=== PATIENT | female | born 1950 | race Caucasian/White ===

== ENCOUNTER 2021-06-23 10:13 | Emergency (ER) | payer OTHER ==
[2021-06-23 11:13] VITALS: BP 140/84; PULSE 92; TEMP 97; BMI 32.1
[2021-06-23] MEDS ORDERED: LIDOCAINE 5% TOPICAL PATCH TP ONE (12:07)
[2021-06-23] MEDS ORDERED: LIDOCAINE 5% TOPICAL PATCH ONE (12:11)
[2021-06-23] MEDS ORDERED: predniSONE 20 MG TABLET (UD) ONE (12:12)
[2021-06-23] MEDS ORDERED: predniSONE 10 MG TABLET (UD) ONE (12:12)
[2021-06-23] MEDS ORDERED: predniSONE 20 MG TABLET (UD) PO SCH (12:15)
[2021-06-23] MEDS ORDERED: LIDOCAINE PATCH REMOVAL MC SCH (22:00)
== END 2021-06-23 15:01 | disposition home or self-care (01) ==
LOC: JER 10:13
DX: M54.31 Sciatica, right side (principal)
CPT/HCPCS: 99283-25

== ENCOUNTER → 2021-07-03 | Day surgery (SDC) | payer OTHER ==
[~2021-07-03] MED LIST: BUPIVACAINE HCL/PF 0.25% (2.5MG/ML) 10 ML VIAL ONE; EPINEPHrine 1:1,000 1 MG/1 ML - 30ML VIAL (INJECTION) ONE
[2021-07-03 07:10] VITALS: BP 119/73; PULSE 84; TEMP 98.4; BMI 30.9
== END | disposition home or self-care (01) ==
LOC: FASU 05:56
PROVIDERS: ATTEND Orthopaedic Surgery Sports Medicine
PROC: 0SBC4ZZ Excision of Right Knee Joint, Percutaneous Endoscopic Approach (ICD-10-PCS; principal; 2021-07-03)
DX: Z53.8 Procedure and treatment not carried out for other reasons (principal); S83.241A Other tear of medial meniscus, current injury, right knee, initial encounter; X58.XXXA Exposure to other specified factors, initial encounter; Y93.9 Activity, unspecified; Y92.9 Unspecified place or not applicable

== ENCOUNTER 2021-07-04 06:29 | Day surgery (SDC) | payer OTHER ==
[2021-07-04 07:43] VITALS: BMI 30.9
[2021-07-04] MEDS ORDERED: BUPIVACAINE HCL/PF 0.25% (2.5MG/ML) 10 ML VIAL ONE (08:53)
[2021-07-04] MEDS ORDERED: SUCCINYLCHOLINE CHLORIDE 200 MG/10 ML SYRINGE ONE (09:53)
[2021-07-04] MEDS ORDERED: LIDOCAINE HCL 2% JELLY (5 ML/TUBE) ONE (09:53)
[2021-07-04] MEDS ORDERED: PROPOFOL 20 ML ONE ×2 (09:53)
[2021-07-04] MEDS ORDERED: LIDOCAINE HCL 2% 100 MG/5 ML DISP.SYRIN ONE (09:53)
[2021-07-04] MEDS ORDERED: MIDAZOLAM HCL 2 MG/2 ML SINGLE DOSE VIAL ONE (09:54)
[2021-07-04] MEDS ORDERED: HYDROmorphone HCL/PF 1 MG/ML VIAL ONE (10:40)
[2021-07-04] MEDS ORDERED: BUPIVACAINE HCL/PF 0.25% (2.5MG/ML) 10 ML VIAL IJ ONE (10:45)
[2021-07-04] MEDS: HYDROmorphone HCL/PF 1 MG/ML VIAL ONE ×2 (10:59→11:30)
[2021-07-04] MEDS ORDERED: ONDANSETRON 4 MG/2 ML VIAL IVPUSH PRN (11:01)
[2021-07-04] MEDS ORDERED: PROMETHAZINE HCL 25 MG/1 ML VIAL IVPUSH PRN (11:01)
[2021-07-04] MEDS ORDERED: oxyCODONE HCL 5 MG TABLET PO PRN ×2 (11:01)
[2021-07-04] MEDS ORDERED: ACETAMINOPHEN 1000 MG/100 ML BAG IVPB ONE (11:01)
[2021-07-04] MEDS ORDERED: HYDROmorphone HCl 2 MG/ML VIAL IVPUSH ONE (11:02)
[2021-07-04 12:22] VITALS: TEMP 97.1
[2021-07-04 13:09] VITALS: BP 130/76; PULSE 77
== END 2021-07-04 13:09 | disposition home or self-care (01) ==
LOC: FASU 06:29
PROVIDERS: ATTEND Orthopaedic Surgery Sports Medicine
PROC: 0SBC4ZZ Excision of Right Knee Joint, Percutaneous Endoscopic Approach (ICD-10-PCS; principal; 2021-07-04 10:20)
DX: S83.241A Other tear of medial meniscus, current injury, right knee, initial encounter (principal); M94.261 Chondromalacia, right knee; M65.861 Other synovitis and tenosynovitis, right lower leg
CPT/HCPCS: 94760; J0131